=== PATIENT | male | born 1980 | race Caucasian/White ===

== ENCOUNTER 2021-01-18 11:51 | Outpatient (CLI) | payer BC ==
[~2021-01-18] VITALS: Ht 182.9 cm; Wt 120.5 kg
[2021-01-18 11:30] VITALS: BP 134/86
[2021-01-18] MEDS ORDERED: ONDANSETRON 4 MG/2 ML (SDV) Z0FRAN IV PRN (12:15)
[2021-01-18] MEDS ORDERED: diphenhydrAMINE 50 MG/ML INJ (BENADRYL) IV PRN (12:15)
[2021-01-18] MEDS ORDERED: EPINEPHrine INJECTION 1 MG/ML AMP IM PRN (12:15)
[2021-01-18] MEDS ORDERED: ACETAMINOPHEN 500 MG TAB (TYLENOL) PO PRN (12:15)
[2021-01-18] MEDS ORDERED: CASIRIVIMAB/IMDEVIMAB 1,200 MG in NS (IVPB) 250 ML IV ONE (12:15)
[2021-01-18 13:25] VITALS: BP 133/88
== END 2021-01-18 13:56 | disposition home or self-care (01) ==
LOC: INFUSION 11:51
PROVIDERS: ATTEND Family Medicine
DX: U07.1 COVID-19 (principal)

== ENCOUNTER → 2021-01-18 | Outpatient (CLI) | payer BC | LOC: LAB 09:50 | PROVIDERS: ATTEND Nurse Practitioner Family | DX: U07.1 COVID-19 (principal) | CPT/HCPCS: 87636 ==